=== PATIENT | female | born 1945 | race Caucasian/White ===

== ENCOUNTER → 2017-04-02 | Outpatient (CLI) | payer MEDICARE ==
--- NOTE | 2017-04-03 09:12 | BD ---
EXAMINATION TYPE: MG DEXA axial skeleton. DATE OF EXAM: 04/02/2017 COMPARISON: Prior DEXA bone scan December 20, 2014 CLINICAL HISTORY: Postmenopausal female Height: 5 FT 2 1/2 IN Weight: 144 FRAX RISK QUESTIONS: Alcohol (3 or more units per day): NO Family History (Parent hip fracture): NO Glucocorticoids (More than 3mos): NO (Ex: prednisone, prednisolone, methylprednisolone, dexamethasone, and hydrocortisone). History of Fracture in Adulthood: YES Secondary Osteoporosis: 1. Type 1 Diabetes: NO 2. Hyperthyroidism: NO 3. Menopause before 45: YES 4. Malnutrition: NO 5. Chronic liver disease: NO Rheumatoid Arthritis: NO Current Tobacco Use: NO RISK FACTORS HISTORY OF: Active: YES Postmenopausal woman: TOTAL HYST AGE 39 Take estrogen and/or progesterone medications: TOOK FROM [age] NO LONGER MEDICATIONS: Additional Medications: EYE VITAMINS, SIMVASTATIN, BLOOD PRESSURE MEDS, AMLODIPINE,BABY ASPIRIN ,REST ASIS0.9 Additional History: EXAM MEASUREMENTS: Bone mineral densitometry was performed using the [employer] System. Bone mineral density as measured about the Lumbar spine is: ----- L1-L4(G/cm2): 0.913 T Score Values are as follows: ----- L2: -1.9 ----- L3: -2.3 ----- L4: -2.7 ----- L1-L4: -2.2 Bone mineral density has: DECREASED -8.2 % since study of: 2014 Bone mineral density about the R hip (g/cm2): 0.856 Bone mineral density about the L hip (g/cm2): 0.919 T Score values are as follows: -----R Neck: -1.3 -----L Neck: -0.9 -----R Total: -1.1 -----L Total: -0.5 Bone mineral density has: DECREASED -2.4 % since study of: 2014 IMPRESSION: Osteopenia (T Score between -2.5 and -1 as noted by T score values overall in the low back and right hip. There is slightly increased risk of fracture and the patient may be considered for treatment. Re -Screen 2-5 years. NOTE: T-SCORE=SD OF THE YOUNG ADULT MEAN.
--- NOTE | 2017-04-03 12:53 | MM ---
Reason for exam: screening (asymptomatic). Last mammogram was performed 1 year and 1 month ago. History: Patient is postmenopausal, history of other cancer, and is nulliparous. Benign excisional biopsy of the right breast. Took estrogen for 14 years beginning at age 43. Physical Findings: A clinical breast exam by your physician is recommended on an annual basis and results should be correlated with mammographic findings. MG 3D Screening Mammo W/Cad Bilateral CC and MLO view(s) were taken. Prior study comparison: March 08, 2016, bilateral MG 3d screening mammo w/cad. December 22, 2014, right breast MG work up mamm w CAD RT. The breast tissue is heterogeneously dense. This may lower the sensitivity of mammography. Asymmetric breast tissue in the left subareolar level, stable. There is no discrete abnormality. ASSESSMENT: Negative, BI-RAD 1 RECOMMENDATION: Routine screening mammogram of both breasts in 1 year.
== END | disposition home or self-care (01) ==
LOC: RADMAMWWP 14:33
PROVIDERS: ATTEND Family Medicine
DX: Z12.31 Encounter for screening mammogram for malignant neoplasm of breast (principal); M85.88 Other specified disorders of bone density and structure, other site; Z78.0 Asymptomatic menopausal state
CPT/HCPCS: 77063; 77067; 77080

== ENCOUNTER → 2018-05-01 | Outpatient (CLI) | payer MEDICARE ==
--- NOTE | 2018-05-05 07:40 | MM ---
Reason for exam: screening (asymptomatic). Last mammogram was performed 1 year and 1 month ago. History: Patient is postmenopausal, history of other cancer, and is nulliparous. Benign excisional biopsy of the right breast. Took estrogen for 14 years beginning at age 43. Physical Findings: A clinical breast exam by your physician is recommended on an annual basis and results should be correlated with mammographic findings. MG 3D Screening Mammo W/Cad Bilateral CC and MLO view(s) were taken. Prior study comparison: April 02, 2017, bilateral MG 3d screening mammo w/cad. March 08, 2016, bilateral MG 3d screening mammo w/cad. There are scattered fibroglandular densities. No significant changes when compared with prior studies. ASSESSMENT: Benign, BI-RAD 2 RECOMMENDATION: Routine screening mammogram of both breasts in 1 year.
== END | disposition home or self-care (01) ==
LOC: RADMAMWWP 14:47
PROVIDERS: ATTEND Family Medicine
DX: Z12.31 Encounter for screening mammogram for malignant neoplasm of breast (principal)
CPT/HCPCS: 77063; 77067

== ENCOUNTER → 2019-05-21 | Outpatient (CLI) | payer MEDICARE ==
--- NOTE | 2019-05-21 11:22 | BD ---
EXAMINATION TYPE: Axial Bone Density DATE OF EXAM: 05/21/2019 COMPARISON: 04.02.2017 CLINICAL HISTORY: 73 YR OLD FEMALE....ICD-10 CODE: M89.9 DISORDER OF BONE Height: 63 Weight: 145 FRAX RISK QUESTIONS: History of Fracture in Adulthood: YES Secondary Osteoporosis: YES 3. Menopause before 45: YES, AT 42 YRS OLD RISK FACTORS HISTORY OF: HX OF BROKEN GREAT TOE >50 YRS OF AGE Postmenopausal woman: YES, AT AGE 42 YRS OLD, TOTAL HYST Take estrogen and/or progesterone medications: YES, IN THE PAST FOR TO 2003 Hyperparathyroidism: NO Adrenal Insufficiency: NO MEDICATIONS: Osteoporosis Medications: YES, EVISTA GENERIC FOR ABOUT 2 YRS Additional Medications: BP MEDS, STATIN FOR CHOLESTEROL, CALCIUM IN HER MULTIVITAMIN AND VITAMIN D Additional History: OSTEOPOROSIS, HYPERTENSION, CHOLESTEROL EXAM MEASUREMENTS: Bone mineral densitometry was performed using the [employer] System. Bone mineral density as measured about the Lumbar spine is: ----- L1-L4(G/cm2): 0.952 T Score Values are as follows: ----- L1: -1.4 ----- L2: -1.2 ----- L3: -3.2 ----- L4: -1.8 ----- L1-L4: -1.9 Bone mineral density has: Increased 2.8% since study of: 04.02.2017 Bone mineral density about the R hip (g/cm2): 0.888 Bone mineral density about the L hip (g/cm2): 0.941 T Score values are as follows: -----R Neck: -0.7 -----L Neck: -0.3 -----R Total: -1.0 -----L Total: -0.5 Bone mineral density has: Increased 1.2% since study of: 04.02.2017 FRAX%s: THERE IS A 13.7% CHANCE FOR A MAJOR OSTEOPOROTIC FX AND A 1.3% FOR A HIP.......PROBABILITY FOR FX IN 10 YRS TIME IMPRESSION: Osteopenia (T Score between -2.5 and -1). There is slightly increased risk of fracture and the patient may be considered for treatment. Re-Screen 2-5 years. NOTE: T-SCORE=SD OF THE YOUNG ADULT MEAN.
--- NOTE | 2019-05-24 10:57 | MM ---
Reason for exam: screening (asymptomatic). Last mammogram was performed 1 year and 1 month ago. History: Patient is postmenopausal, history of other cancer, and is nulliparous. Benign excisional biopsy of the right breast. Took hormonal contraceptives for 10 years beginning at age 23. Took estrogen for 14 years beginning at age 43. Physical Findings: A clinical breast exam by your physician is recommended on an annual basis and results should be correlated with mammographic findings. MG 3D Screening Mammo W/Cad Bilateral CC and MLO view(s) were taken. Prior study comparison: May 01, 2018, bilateral MG 3d screening mammo w/cad. April 02, 2017, bilateral MG 3d screening mammo w/cad. The breast tissue is heterogeneously dense. This may lower the sensitivity of mammography. There is no discrete abnormality. ASSESSMENT: Negative, BI-RAD 1 RECOMMENDATION: Routine screening mammogram of both breasts in 1 year.
== END | disposition home or self-care (01) ==
LOC: RADMAMWWP 10:11
PROVIDERS: ATTEND Family Medicine
DX: Z12.31 Encounter for screening mammogram for malignant neoplasm of breast (principal); M85.88 Other specified disorders of bone density and structure, other site
CPT/HCPCS: 77063; 77067; 77080

== ENCOUNTER → 2020-01-13 | Outpatient (CLI) | payer MEDICARE | END | disposition home or self-care (01) | LOC: LABPAT 13:34 | PROVIDERS: ATTEND Student in an Organized Health Care Education/Training Program | DX: U07.1 COVID-19 (principal) | CPT/HCPCS: U0003; C9803 ==

== ENCOUNTER 2020-01-20 11:12 | Day surgery (SDC) | payer MEDICARE ==
[2020-01-18 11:28] VITALS: BMI 25.5
[~2020-01-20 11:12] MED LIST: LACTATED RINGERS 1,000 ML IV SCH
[2020-01-20] MEDS ORDERED: LIDOCAINE 1% (10MG/ML) FOR IV START INTRADERMA ONE (11:49)
[2020-01-20 11:58] VITALS: TEMP 98.3
[2020-01-20] MEDS ORDERED: PROPOFOL 10 MG/ML 20 ML VIAL IV ONE (11:59)
--- NOTE | 2020-01-20 12:34 | P.OP ---
Date of Procedure: 01/20/20 Preoperative Diagnosis: Screening Postoperative Diagnosis: Same with 3 polyps Anesthesia: MAC Surgeon: Rick Cruz Estimated Blood Loss (ml): 0 Condition: stable Disposition: PACU Description of Procedure: Patient is brought operative suite remained in the left lateral position underwent sedation per department of anesthesia timeout performed correct patient correct procedure correct site was verified rectal exam was performed no gross evidence noted scope was passed from the rectum to the cecum with ease there is 2 small pedunculate polyp to the cecum that were removed via hot snare polypectomy the scope was then slowly withdrawn being sure to visualize all gamble of the colon on the way out there was one other small pedunculated polyp noted in the ascending colon removed via hot snare polypectomy. There is no other gross abnormalities noted scope was retroflexed in the rectum no gross abnormalities are noted scope was then withdrawn patient artery procedure well no apparent complications she'll need a repeat colonoscopy in 5 years.
[2020-01-20 12:45] VITALS: RESP 18
[2020-01-20 13:02] VITALS: BP 164/80; PULSE 83
== END 2020-01-20 13:15 | disposition home or self-care (01) ==
LOC: ORWHC2ENDO 11:12
PROVIDERS: ATTEND Student in an Organized Health Care Education/Training Program
DX: D12.2 Benign neoplasm of ascending colon (principal); I10 Essential (primary) hypertension; E78.5 Hyperlipidemia, unspecified; M19.90 Unspecified osteoarthritis, unspecified site; Z87.19 Personal history of other diseases of the digestive system; Z79.82 Long term (current) use of aspirin; Z79.899 Other long term (current) drug therapy; Z90.710 Acquired absence of both cervix and uterus; Z98.51 Tubal ligation status; Z87.891 Personal history of nicotine dependence; Z82.49 Family history of ischemic heart disease and other diseases of the circulatory system; Z80.0 Family history of malignant neoplasm of digestive organs; Z80.8 Family history of malignant neoplasm of other organs or systems
CPT/HCPCS: 88305; 45385; J2704

== ENCOUNTER → 2020-07-06 | Outpatient (CLI) | payer MEDICARE ==
--- NOTE | 2020-07-10 13:58 | MM ---
Reason for exam: screening (asymptomatic). Last mammogram was performed 1 year and 2 months ago. History: Patient is postmenopausal, history of other cancer, and is nulliparous. Benign excisional biopsy of the right breast. Took hormonal contraceptives for 10 years beginning at age 23. Took estrogen for 14 years beginning at age 43. Physical Findings: A clinical breast exam by your physician is recommended on an annual basis and results should be correlated with mammographic findings. MG 3D Screening Mammo W/Cad Bilateral CC and MLO view(s) were taken. Prior study comparison: May 21, 2019, bilateral MG 3d screening mammo w/cad. May 01, 2018, bilateral MG 3d screening mammo w/cad. The breast tissue is heterogeneously dense. This may lower the sensitivity of mammography. No significant changes when compared with prior studies. ASSESSMENT: Negative, BI-RAD 1 RECOMMENDATION: Routine screening mammogram of both breasts in 1 year.
== END | disposition home or self-care (01) ==
LOC: RADMAMWWP 14:27
PROVIDERS: ATTEND Family Medicine
DX: Z12.31 Encounter for screening mammogram for malignant neoplasm of breast (principal); Z78.0 Asymptomatic menopausal state
CPT/HCPCS: 77063; 77067

== ENCOUNTER 2020-10-28 06:35 | Emergency (ER) | payer MEDICARE ==
[2020-10-28 06:41] VITALS: TEMP 98.3
--- NOTE | 2020-10-28 06:51 | ED ---
General Adult HPI - General Chief complaint: Chest Pain Stated complaint: Chest pain Time Seen by Provider: 10/28/20 06:36 Source: patient, EMS Mode of arrival: EMS - History of Present Illness Initial comments: 75-year-old female with a past medical history of hyperlipidemia, hypertension presents to the emergency room for a chief complaint of chest pressure. Patient states she got up to go to the bathroom around 1 AM. She did not notice any pressure at that time. At 2 AM she started to have some pressure on the left side of the chest. She did take Tums but the pressure continued. Patient states the pressure is intermittent in nature and comes and goes lasting only a few seconds at a time. Denies any associated shortness of breath, nausea or diaphoresis. Denies radiating pain. According to patient she did have a cardiac workup about 5 years ago with a negative stress test. Patient was told by primary care that she did have a silent AL at that time.Patient has no other complaints at this time including shortness of breath, abdominal pain, nausea or vomiting, headache, or visual changes. - Related Data Home Medications Medication Instructions Recorded Confirmed Aspirin EC [Ecotrin Low Dose] 81 mg PO DAILY 10/01/13 01/20/20 Simvastatin [Zocor] 20 mg PO PC-SUPPER 10/01/13 01/20/20 Acyclovir 400 mg PO DAILY PRN 08/03/14 01/20/20 Cholecalciferol [Vitamin D3 (25 1,000 unit PO DAILY 08/03/14 01/20/20 Mcg = 1000 Iu)] Vit C/E/Zn/Coppr/Lutein/Zeaxan 1 each PO BID 08/03/14 01/20/20 [Preservision Areds 2 Softgel] cycloSPORINE [Restasis] 1 applicator BOTH EYES BID 08/03/14 01/20/20 Ciclopirox Olamine Cream [Ciclodan] 1 applic TOPICAL DAILY PRN 01/18/20 01/20/20 Cyanocobalamin [Vitamin B-12] 500 mcg PO DAILY 01/18/20 01/20/20 Irbesartan [Avapro] 150 mg PO DAILY 01/18/20 01/20/20 Melatonin 5 mg PO HS 01/18/20 01/20/20 Raloxifene [Evista] 60 mg PO DAILY 01/18/20 01/20/20 amLODIPine [Norvasc] 5 mg PO DAILY 01/18/20 01/20/20 Allergies Allergy/AdvReac Type Severity Reaction Status Date / Time No Known Allergies Allergy Verified 01/18/20 11:10 Review of Systems ROS Statement: Those systems with pertinent positive or pertinent negative responses have been documented in the HPI. ROS Other: All systems not noted in ROS Statement are negative. Past Medical History Past Medical History: Hyperlipidemia, Hypertension, Musculoskeletal Disorder, Osteoarthritis (OA), Skin Disorder Additional Past Medical History / Comment(s): 08/03/14 Pt admitted to [facility] ER with L anterior chest tightness which started 9 am this morning and also her P/P was elevated. Pt recently diagnosed with HTN and started metoprolol 12.5 mg Q d ay. Other HX: L eye retinal partial tear repaired with laser, recent colonoscopy which showed internal hemorrhoids, redundant tortuous bowel and the beginning of diverticulosis, rosacea, endometriosis. History of Any Multi-Drug Resistant Organisms: None Reported Past Surgical History: Hysterectomy Additional Past Surgical History / Comment(s): DILLON CATARACTS removed, L eye partial retinal tear repaired with laser, Pt unsure if appendix was removed with hysterectomy, R thigh and back moles removed- not melenoma, colonoscopy. Right breast. biopsy. Past Anesthesia/Blood Transfusion Reactions: No Reported Reaction Past Psychological History: No Psychological Hx Reported Smoking Status: Former smoker Past Alcohol Use History: Occasional Past Drug Use History: None Reported - Past Family History Brother(s) Family Medical History: Cancer Additional Family Medical History / Comment(s): COLON-. 2nd brother melanoma Father Family Medical History: Hypertension, Vascular Disorder Additional Family Medical History / Comment(s): cerebral aneurysm Mother Family Medical History: Dementia Additional Family Medical History / Comment(s): Mother of alzheimers. General Exam General appearance: alert, in no apparent distress Head exam: Present: atraumatic, normocephalic, normal inspection Eye exam: Present: normal appearance, PERRL, EOMI. Absent: scleral icterus, conjunctival injection, periorbital swelling ENT exam: Present: normal exam, mucous membranes moist Neck exam: Present: normal inspection, full ROM. Absent: tenderness, meningismus, lymphadenopathy Respiratory exam: Present: normal lung sounds bilaterally. Absent: respiratory distress, wheezes, rales, rhonchi, stridor Cardiovascular Exam: Present: regular rate, normal rhythm, normal heart sounds. Absent: systolic murmur, diastolic murmur, rubs, gallop, clicks GI/Abdominal exam: Present: soft, normal bowel sounds. Absent: distended, tenderness, guarding, rebound, rigid Course Vital Signs 10/28/20 10/28/20 10/28/20 06:35 07:12 07:30 Temperature 98.3 F Pulse Rate 96 81 84 Respiratory 18 15 15 Rate Blood Pressure 183/93 149/88 149/88 O2 Sat by Pulse 96 96 95 Oximetry 10/28/20 10/28/20 10/28/20 08:00 09:00 09:34 Temperature Pulse Rate 84 80 81 Respiratory 16 15 16 Rate Blood Pressure 149/88 149/88 139/80 O2 Sat by Pulse 97 97 97 Oximetry 10/28/20 10:00 Temperature Pulse Rate 81 Respiratory 14 Rate Blood Pressure 147/89 O2 Sat by Pulse 97 Oximetry EKG Findings - EKG Comments: EKG Findings:: Normal sinus rhythm, ventricular rate 93, AR interval 164, QTc 432 Medical Decision Making - Medical Decision Making Patient is well-appearing however complaining of chest pressure. She did get aspirin by EMS. She states the pressure comes and goes. States it only lasts for a few seconds at a time and is on the left side of the chest. EKG does not show any evidence of elevation. Patient was on quality engineer. Chest x-ray shows no acute pulmonary process. Vitals are stable. Laboratory evaluation initiated. CBC CMP unremarkable. Troponin is negative. D-dimer is normal. Patient has a history of "silent AL". Patient last had cardiac workup 5 years ago. At this time it was recommended the patient be admitted to the hospital. However patient is refusing this. She does not want to stay in the hospital. She is aware we cannot completely rule out that this was not a cardiac event or just the emergency room. I did convince her to do at repeat 3 hour troponin. She would prefer to follow up outpatient. She states she'll not be able to do any testing in the hospital as she needs to be prepared for this and was not able to do a stress test last time. States she would rather have her doctor schedule this so she can be prepared. Repeat 3 hour troponin did come back negative. - Lab Data Result diagrams: 10/28/20 06:55 10/28/20 06:55 Lab Results 10/28/20 10/28/20 10/28/20 Range/Units 06:55 06:55 06:55 WBC 6.3 (3.8-10.6) k/uL RBC 4.34 (3.80-5.40) m/uL Hgb 13.9 (11.4-16.0) gm/dL Hct 41.2 (34.0-46.0) % MCV 94.8 (80.0-100.0) fL MCH 32.1 (25.0-35.0) pg MCHC 33.9 (31.0-37.0) g/dL RDW 13.4 (11.5-15.5) % Plt Count 347 (150-450) k/uL MPV 7.0 Neutrophils % 70 % Lymphocytes % 21 % Monocytes % 5 % Eosinophils % 2 % Basophils % 1 % Neutrophils # 4.4 (1.3-7.7) k/uL Lymphocytes # 1.3 (1.0-4.8) k/uL Monocytes # 0.3 (0-1.0) k/uL Eosinophils # 0.1 (0-0.7) k/uL Basophils # 0.1 (0-0.2) k/uL PT 9.5 (9.0-12.0) sec INR 0.9 (<1.2) APTT 21.1 L (22.0-30.0) sec D-Dimer 0.28 (<0.60) mg/L FEU Sodium 139 (137-145) mmol/L Potassium 4.4 (3.5-5.1) mmol/L Chloride 105 (98-107) mmol/L Carbon Dioxide 24 (22-30) mmol/L Anion Gap 10 mmol/L BUN 22 H (7-17) mg/dL Creatinine 0.83 (0.52-1.04) mg/dL Est GFR (CKD-EPI)AfAm 81 (>60 ml/min/1.73 sqM) Est GFR (CKD-EPI)NonAf 70 (>60 ml/min/1.73 sqM) Glucose 116 H (74-99) mg/dL Calcium 10.1 (8.4-10.2) mg/dL Magnesium 1.9 (1.6-2.3) mg/dL Total Bilirubin 0.5 (0.2-1.3) mg/dL AST 29 (14-36) U/L ALT 20 (4-34) U/L Alkaline Phosphatase 62 (38-126) U/L Troponin I (0.000-0.034) ng/mL NT-Pro-B Natriuret Pep pg/mL Total Protein 7.0 (6.3-8.2) g/dL Albumin 4.3 (3.5-5.0) g/dL Lipase 61 (23-300) U/L 10/28/20 10/28/20 10/28/20 Range/Units 06:55 06:55 09:34 WBC (3.8-10.6) k/uL RBC (3.80-5.40) m/uL Hgb (11.4-16.0) gm/dL Hct (34.0-46.0) % MCV (80.0-100.0) fL MCH (25.0-35.0) pg MCHC (31.0-37.0) g/dL RDW (11.5-15.5) % Plt Count (150-450) k/uL MPV Neutrophils % % Lymphocytes % % Monocytes % % Eosinophils % % Basophils % % Neutrophils # (1.3-7.7) k/uL Lymphocytes # (1.0-4.8) k/uL Monocytes # (0-1.0) k/uL Eosinophils # (0-0.7) k/uL Basophils # (0-0.2) k/uL PT (9.0-12.0) sec INR (<1.2) APTT (22.0-30.0) sec D-Dimer (<0.60) mg/L FEU Sodium (137-145) mmol/L Potassium (3.5-5.1) mmol/L Chloride (98-107) mmol/L Carbon Dioxide (22-30) mmol/L Anion Gap mmol/L BUN (7-17) mg/dL Creatinine (0.52-1.04) mg/dL Est GFR (CKD-EPI)AfAm (>60 ml/min/1.73 sqM) Est GFR (CKD-EPI)NonAf (>60 ml/min/1.73 sqM) Glucose (74-99) mg/dL Calcium (8.4-10.2) mg/dL Magnesium (1.6-2.3) mg/dL Total Bilirubin (0.2-1.3) mg/dL AST (14-36) U/L ALT (4-34) U/L Alkaline Phosphatase (38-126) U/L Troponin I <0.012 <0.012 (0.000-0.034) ng/mL NT-Pro-B Natriuret Pep 86 pg/mL Total Protein (6.3-8.2) g/dL Albumin (3.5-5.0) g/dL Lipase (23-300) U/L Disposition Clinical Impression: Chest pain Disposition: HOME SELF-CARE Condition: Fair Instructions (If sedation given, give patient instructions): Chest Pain (ED) Additional Instructions: Please follow-up with your doctor on Friday to discuss this pain. Return to the emergency room for any worsening symptoms or if your chest pain worsens.. Is patient prescribed a controlled substance at d/c from ED?: No Referrals: Reena Cardoso MD [Primary Care Provider] - 1-2 days Time of Disposition: 08:11
[2020-10-28 07:05] LABS: Basophils # (A) 0.1 k/uL (0-0.2); Basophils % (A) 1 %; Eosinophils # (A) 0.1 k/uL (0-0.7); Eosinophils % (A) 2 %; HCT 41.2 % (34.0-46.0); HGB 13.9 gm/dL (11.4-16.0); Lymphocytes # (A) 1.3 k/uL (1.0-4.8); Lymphocytes % (A) 21 %; MCH 32.1 pg (25.0-35.0); MCHC 33.9 g/dL (31.0-37.0); MCV 94.8 fL (80.0-100.0); Monocytes # (A) 0.3 k/uL (0-1.0); Monocytes % (A) 5 %; Neutrophils # (A) 4.4 k/uL (1.3-7.7); Neutrophils % (A) 70 %; Platelet Count 347 k/uL (150-450); RBC 4.34 m/uL (3.80-5.40); RDW 13.4 % (11.5-15.5); WBC 6.3 k/uL (3.8-10.6)
[2020-10-28 07:18] LABS: Albumin 4.3 g/dL (3.5-5.0); Calcium 10.1 mg/dL (8.4-10.2); Total Bilirubin 0.5 mg/dL (0.2-1.3)
[2020-10-28 07:23] LABS: Magnesium 1.9 mg/dL (1.6-2.3); Potassium 4.4 mmol/L (3.5-5.1)
[2020-10-28 07:25] LABS: INR 0.9 (<1.2); Prothrombin Time 9.5 sec (9.0-12.0)
--- NOTE | 2020-10-28 07:35 | XR ---
EXAMINATION TYPE: XR chest 2V DATE OF EXAM: 10/28/2020 COMPARISON: 08/03/2014 INDICATION: Chest pain TECHNIQUE: Single frontal view of the chest is obtained. FINDINGS: The heart size is normal. The pulmonary vasculature is normal. The lungs are clear. IMPRESSION: 1. No acute pulmonary process.
[2020-10-28 07:45] LABS: Partial Thromboplastin Time 21.1 sec (22.0-30.0)
[2020-10-28 09:35] VITALS: PULSE 81
[2020-10-28 10:32] VITALS: BP 147/89; RESP 14
[2020-10-29] MEDS ORDERED: ASPIRIN 325 MG TAB PO SCH (09:00)
== END 2020-10-28 10:46 | disposition home or self-care (01) ==
LOC: EC 06:35 → UNDOADMOB 08:08 → 6NMEDSUR 08:08 → EC 10:46
DX: R07.89 Other chest pain (principal); M19.90 Unspecified osteoarthritis, unspecified site; I10 Essential (primary) hypertension; E78.5 Hyperlipidemia, unspecified; Z87.891 Personal history of nicotine dependence; Z79.899 Other long term (current) drug therapy; Z79.82 Long term (current) use of aspirin
CPT/HCPCS: 36415; 71046; 80053; 83690; 83735; 83880; 84484; 85025; 85379; 85610; 85730; 93005; 99285

== ENCOUNTER → 2021-01-26 | Outpatient (CLI) | payer MEDICARE ==
--- NOTE | 2021-01-26 18:32 | ECHOS ---
STRESS ECHOCARDIOGRAM DATE OF SERVICE: 01/26/2021 INDICATIONS: Chest pain. BASELINE HEART RATE: 86 BASELINE BLOOD PRESSURE: 140/68 MAXIMUM HEART RATE: 138 MAXIMUM BLOOD PRESSURE: 188/98 85% MPHR: 124 100% MPHR: 146 METS: 7.9 MAXIMUM STAGE REACHED: 3 TOTAL EXERCISE TIME: 6:48 STRESS DATA: Heart rate is 85, pressure is 140/167 mmHg. Baseline EKG showed sinus mechanism. The patient exercised on the treadmill according to Maldonado protocol for a total of 6 minutes and 48 seconds and achieved 7.9 METS. Max heart rate was 138, which is about 95% of maximum predicted heart rate and maximum blood pressure is 189/87 mmHg. Clinically, the patient did not have any symptoms of chest pain or chest discomfort. The EKG did not show any significant ST or T-wave abnormalities concerning for ischemia. ANALYSIS: On echocardiogram images from parasternal long axis view, parasternal short axis view, apical 4-chamber and apical 2 chambers were obtained as the baseline images, at the peak of the heart rate as well as on recovery. The echocardiogram showed excellent augmentation in the left ventricular systolic function without any evidence of wall motion abnormalities concerning for ischemia. CONCLUSION: 1. Good exercise tolerance. 2. Normal EKG in response to exercise. 3. Normal echocardiogram in response to exercise. MMODL / IJN: [id number] /
== END | disposition home or self-care (01) ==
LOC: RADNMMAIN 09:05
PROVIDERS: ATTEND Family Medicine
DX: R07.9 Chest pain, unspecified (principal)
CPT/HCPCS: 93351

== ENCOUNTER → 2021-07-13 | Outpatient (CLI) | payer MEDICARE ==
--- NOTE | 2021-07-13 16:52 | BD ---
EXAMINATION TYPE: Axial Bone Density DATE OF EXAM: 07/13/2021 COMPARISON: NONE CLINICAL HISTORY: 76 year old Female. ICD-10 CODE: N95.1 Post mary symptoms Height: 63 Weight: 151.2 FRAX RISK QUESTIONS: Alcohol (3 or more units per day): no Family History (Parent hip fracture): no Glucocorticoids (More than 3mos): no (Ex: prednisone, prednisolone, methylprednisolone, dexamethasone, and hydrocortisone). History of Fracture in Adulthood: no Secondary Osteoporosis: 1. Type 1 Diabetes: no 2. Hyperthyroidism: no 3. Menopause before 45: yes 4. Malnutrition: no 5. Chronic liver disease: no Rheumatoid Arthritis: no Current Tobacco Use: no RISK FACTORS HISTORY OF: Surgery to Spine/Hip(right/left)/Wrist (right/left): no Family History of Osteoporosis: no Active: yes Diet low in dairy products/other sources of calcium: no Postmenopausal woman: yes Lost more than 2 inches in height since high school: no MEDICATIONS: Osteoporosis Medications: raloxifene How Lon years Additional Medications: Additional History: EXAM MEASUREMENTS: Bone mineral densitometry was performed using the [employer]. Bone mineral density as measured about the Lumbar spine is: ----- L1-L4(G/cm2): 0.930 T Score Values are as follows: ----- L1: -1.7 ----- L2: -1.5 ----- L3: -2.5 ----- L4: -2.6 ----- L1-L4: -2.1 Bone mineral density has: decreased -1.7 % since study of: 05.21.2019 Bone mineral density about the R hip (g/cm2): 0.851 Bone mineral density about the L hip (g/cm2): 0.897 T Score values are as follows: -----R Neck: -1.3 -----L Neck: -1.0 -----R Total: -1.0 -----L Total: -0.6 Bone mineral density has: decreased -0.9 % since study of: 05.21.2019 FRAX%s: The graph provided illustrates a 10.7% chance for a major osteoporotic fx and a 2.0% chance f or the hips probability for fx in 10 years time. IMPRESSION: Osteopenia (T Score between -2.5 and -1). There is slightly increased risk of fracture and the patient may be considered for treatment. Re-Screen 2-5 years. NOTE: T-SCORE=SD OF THE YOUNG ADULT MEAN.
== END | disposition home or self-care (01) ==
LOC: RADBDWWP 09:56
PROVIDERS: ATTEND Family Medicine
DX: M85.89 Other specified disorders of bone density and structure, multiple sites (principal); Z78.0 Asymptomatic menopausal state
CPT/HCPCS: 77080

== ENCOUNTER → 2021-07-24 | Outpatient (CLI) | payer MEDICARE ==
--- NOTE | 2021-07-27 09:23 | MM ---
Reason for exam: screening (asymptomatic). Last mammogram was performed 1 year and 1 month ago. History: Patient is postmenopausal, history of other cancer, and is nulliparous. Benign excisional biopsy of the right breast. Took hormonal contraceptives for 10 years beginning at age 23. Took estrogen for 14 years beginning at age 43. Physical Findings: A clinical breast exam by your physician is recommended on an annual basis and results should be correlated with mammographic findings. MG 3D Screening Mammo W/Cad Bilateral CC and MLO view(s) were taken. Prior study comparison: July 06, 2020, bilateral MG 3d screening mammo w/cad. May 21, 2019, bilateral MG 3d screening mammo w/cad. May 01, 2018, bilateral MG 3d screening mammo w/cad. There are scattered fibroglandular densities. No significant changes when compared with prior studies. ASSESSMENT: Benign, BI-RAD 2 RECOMMENDATION: Routine screening mammogram of both breasts in 1 year.
== END | disposition home or self-care (01) ==
LOC: RADMAMWWP 13:10
PROVIDERS: ATTEND Family Medicine
DX: Z12.31 Encounter for screening mammogram for malignant neoplasm of breast (principal)
CPT/HCPCS: 77063; 77067

== ENCOUNTER → 2022-07-30 | Outpatient (CLI) | payer MEDICARE ==
--- NOTE | 2022-07-31 18:55 | MM ---
Reason for Exam: Screening (asymptomatic). Last screening mammogram was performed 12 month(s) ago. Patient History: Menarche at age 14. Patient has no children. Left ovary removed at age 43. Right ovary removed at age 43. Hysterectomy at age 43. Postmenopausal. Estrogen for 14 years from age 43 until age 58. Hormonal Contraceptives for 10 years from age 23 until age 33. Benign Excisional Biopsy on the right side. Risk Values: Kait 5 year model risk: 2.3%. NCI Lifetime model risk: 4.7%. Prior Study Comparison: 05/21/2019 Bilateral Screening Mammogram, [facility]. 07/06/2020 Bilateral Screening Mammogram, [facility]. 07/24/2021 Bilateral Screening Mammogram, [facility]. Tissue Density: There are scattered fibroglandular densities. Findings: Analyzed By CAD. Appears symmetrical and stable. No suspicious groups of microcalcifications, spiculated or lobular masses, architectural distortion or other secondary signs of malignancy are mammographically apparent. Overall Assessment: Benign, BI-RAD 2 Management: Screening Mammogram of both breasts in 1 year. A negative mammogram report should not preclude additional follow up of suspicious palpable abnormalities. Patient should continue monthly self breast exam. A clinical breast exam by your physician is recommended on an annual basis and results should be correlated with mammographic findings. Electronically signed and approved by: Ramakrishna Rios D.O. Radiologis
== END | disposition home or self-care (01) ==
LOC: RADMAMWWP 13:04
PROVIDERS: ATTEND Family Medicine
DX: Z12.31 Encounter for screening mammogram for malignant neoplasm of breast (principal); Z78.0 Asymptomatic menopausal state
CPT/HCPCS: 77063; 77067

== ENCOUNTER → 2023-08-01 | Outpatient (CLI) | payer MEDICARE ==
--- NOTE | 2023-08-01 15:14 | BD ---
EXAMINATION TYPE: Axial Bone Density DATE OF EXAM: 08/01/2023 CLINICAL HISTORY: 78 years old Female. ICD-10 CODE: M81.0 AGE-RELATED OSTEOPOROSIS W/O CURRENT PATHO LOGICAL Height: 62.5 Weight: 146 FRAX RISK QUESTIONS: Alcohol (3 or more units per day): no Family History (Parent hip fracture): non Glucocorticoids (More than 3mos): no (Ex: prednisone, prednisolone, methylprednisolone, dexamethasone, and hydrocortisone). History of Fracture in Adulthood: no Secondary Osteoporosis: no RISK FACTORS HISTORY OF: Surgery to Spine/Hip(right/left)/Wrist (right/left): no MEDICATIONS: Thyroid Medications: no Osteoporosis Medications: yes Which medication: Miacalcin How Lon year EXAM MEASUREMENTS: Bone mineral densitometry was performed using the Fi[employer]tt System. Bone mineral density as measured about the Lumbar spine is: ----- L1-L4(G/cm2): 0.942 T Score Values are as follows: ----- L1: -2.2 ----- L2: -2.1 ----- L3: -2.7 ----- L4: -1.4 ----- L1-L4: -2.0 Z Score Values are as follows: ----- L1: -0.4 ----- L2: -0.3 ----- L3: -0.9 ----- L4: 0.3 ----- L1-L4: -0.2 Bone mineral density has: Increased 16.5% since study of: 07/13/2021 Bone mineral density about the R hip (g/cm2): 0.846 Bone mineral density about the L hip (g/cm2): 0.947 T Score values are as follows: -----R Neck: -1.7 -----L Neck: -0.8 -----R Total: -1.3 -----L Total: -0.5 Z Score values are as follows: -----R Neck: 0.3 -----L Neck: 1.2 -----R Total: 0.5 -----L Total: 1.3 Bone mineral density has: Decreased -1.1% since study of: 07/13/2021 FRAX%s: The graph provided illustrates a 13.1% chance for a major osteoporotic fx and a 3.1% chance f or the hips probability for fx in 10 years time. IMPRESSION: Osteoporosis (T Score less than -2.5). There is increased fracture risk and therapy is usually indicated based on age. Re-Screen 1-2 years. NOTE: T-SCORE=SD OF THE YOUNG ADULT MEAN.
--- NOTE | 2023-08-04 15:00 | MM ---
Reason for Exam: Screening (asymptomatic). Last screening mammogram was performed 12 month(s) ago. Patient History: Menarche at age 14. Patient has no children. Left ovary removed at age 43. Right ovary removed at age 43. Hysterectomy at age 43. Postmenopausal. Estrogen for 14 years from age 43 until age 58. Hormonal Contraceptives for 10 years from age 23 until age 33. Benign Excisional Biopsy on the right side. Risk Values: Kait 5 year model risk: 2.3%. NCI Lifetime model risk: 4.4%. Prior Study Comparison: 07/06/2020 Bilateral Screening Mammogram, [facility]. 07/24/2021 Bilateral Screening Mammogram, [facility]. 07/30/2022 Bilateral MG 3D screening mammo w/cad, [facility]. Tissue Density: There are scattered areas of fibroglandular density. Findings: Analyzed By CAD. Right breast: There is no suspicious group of microcalcifications or new suspicious mass. Left breast: There is no suspicious group of microcalcifications or new suspicious mass. Overall Assessment: Negative, BI-RAD 1 Management: Screening Mammogram of both breasts in [address] [facility] will attempt to contact patient to return for supplemental views and ultrasound if indicated. Patient should continue monthly self-breast exams. A clinical breast exam by your physician is recommended on an annual basis. This exam should not preclude additional follow-up of suspicious palpable abnormalities. Note on Kait scores and lifetime risk: 1. A Kait score greater than 3% is considered moderate risk. If this is the case, consider specialist referral to assess eligibility for a risk reducing agent. 2. If overall lifetime risk for the development of breast cancer is 20% or higher, the patient may qualify for future screening with alternating mammogram and breast MRI. Electronically signed and approved by: Orlando Harkins DO
== END | disposition home or self-care (01) ==
LOC: RADMAMWWP 12:55
PROVIDERS: ATTEND Family Medicine
DX: Z12.31 Encounter for screening mammogram for malignant neoplasm of breast (principal); M85.89 Other specified disorders of bone density and structure, multiple sites; Z78.0 Asymptomatic menopausal state
CPT/HCPCS: 77063; 77067; 77080

== ENCOUNTER → 2024-10-13 | Outpatient (CLI) | payer MEDICARE ==
--- NOTE | 2024-10-13 16:26 | MM ---
Reason for Exam: Screening (asymptomatic). Last mammogram was performed 1 year(s) and 2 month(s) ago. Patient History: Menarche at age 14. Patient has no children. Left ovary removed at age 43. Right ovary removed at age 43. Hysterectomy at age 43. Postmenopausal. Estrogen for 14 years from age 43 until age 58. Hormonal Contraceptives for 10 years from age 23 until age 33. Benign Excisional Biopsy on the right side. Risk Values: Kait 5 year model risk: 2.3%. NCI Lifetime model risk: 4.0%. Prior Study Comparison: 07/24/2021 Bilateral Screening Mammogram, [facility]. 07/30/2022 Bilateral MG 3D screening mammo w/cad, [facility]. 08/01/2023 Bilateral MG 3D screening mammo w/cad, [facility]. Tissue Density: There are scattered areas of fibroglandular density. Findings: Analyzed By CAD. Right breast: There is no suspicious group of microcalcifications or new suspicious mass. Benign-appearing calcifications right breast. Left breast: There is no suspicious group of microcalcifications or new suspicious mass. Benign-appearing calcifications left breast. Overall Assessment: Benign, BI-RAD 2 Management: Screening Mammogram of both breasts in [address] [facility] will attempt to contact patient to return for supplemental views and ultrasound if indicated. Patient should continue monthly self-breast exams. A clinical breast exam by your physician is recommended on an annual basis. This exam should not preclude additional follow-up of suspicious palpable abnormalities. Note on Kait scores and lifetime risk: 1. A Kait score greater than 3% is considered moderate risk. If this is the case, consider specialist referral to assess eligibility for a risk reducing agent. 2. If overall lifetime risk for the development of breast cancer is 20% or higher, the patient may qualify for future screening with alternating mammogram and breast MRI. [facility], , 10/13/2024 4:23 PM. Electronically signed and approved by: Orlando Harkins DO
== END | disposition home or self-care (01) ==
LOC: RADMAMWWP 13:40
PROVIDERS: ATTEND Family Medicine
DX: Z12.31 Encounter for screening mammogram for malignant neoplasm of breast (principal); R92.323 Mammographic fibroglandular density, bilateral breasts; Z78.0 Asymptomatic menopausal state; Z92.0 Personal history of contraception
CPT/HCPCS: 77063; 77067